=== PATIENT | female | born 1940 | race Caucasian/White ===

== ENCOUNTER → 2023-12-28 09:50 | Outpatient (REF) | payer MEDICARE, OTHER, SELFPAY | LOC: DHSLP 09:50 | PROVIDERS: ATTENDING PHYSICIAN Internal Medicine Critical Care Medicine; FAMILY PHYSICIAN Internal Medicine Cardiovascular Disease | DX: G47.33 Obstructive sleep apnea (adult) (pediatric) (principal) | CPT/HCPCS: 95800 ==

== ENCOUNTER 2024-03-19 07:29 | Day surgery (SDC) | payer MEDICARE, OTHER, SELFPAY ==
--- NOTE | 2024-03-05 09:42 | HPS.HSE ---
Family Physician
-
Family Physician: NIDHI RICHTER, DO
Chief Complaint
-
Persistent atrial fibrillation.
History of Present Illness
The patient is a 83-year-old female presenting today for persistent atrial fibrillation. The patient reports a wide variety of symptoms associated with this diagnosis. Noted symptoms include palpitations, shortness of breath, fatigue, and
lightheadedness. She previously underwent 3 cardioversions secondary to this diagnosis. She is currently rate controlled without the use of pharmacological therapy. She was previously taking Amiodarone; however, this was discontinued due to
tachycardia-bradycardia syndrome. She reports she has been compliant with Eliquis for oral anticoagulation due to a [id number] of 4. She notes that her current symptoms greatly interfere with her activities of daily living and overall impact her
quality of life. She is interested in pursuing with pulmonary vein isolation for further arrhythmia management. Prior to undergoing pulmonary vein isolation, she will need a transesophageal echocardiogram to officially rule out a left atrial
appendage thrombus. She denies any current complaints today such as chest pain and shortness of breath at rest, nausea, vomiting, diarrhea, dizziness, cough, sore throat, or fever.
Medical History
Past Medical History
Past Medical History: Reports Other
Additional Past Medical History:
1. Persistent atrial fibrillation, status post cardioversion x3; oral anticoagulation with Eliquis.
2. Hypertension.
3. Dyslipidemia, statin intolerant.
4. Paroxysmal supraventricular tachycardia.
5. Tachycardia-bradycardia syndrome.
6. Right bundle branch block.
7. Venous varicosities, status post bilateral venous ablation.
7. Pulmonary nodule.
8. Newly diagnosed obstructive sleep apnea, compliant with CPAP.
9. Chronic post-nasal drip.
10. Chronic kidney disease stage 3.
11. Fatty liver disease.
12. Lumbar degenerative disc disease with stenosis.
13. Peripheral neuropathy.
14. Basal and squamous cell carcinoma, status post multiple Mohs.
15. Rosacea.
Past Surgical History: Reports Other
Additional Past Surgical History:
1. Cardioversion.
2. L4-L5 fusion.
3. Hysterectomy.
4. Bilateral tubal ligation.
5. D&C.
6. Venous ablation.
7. Multiple Mohs.
8. Bilateral cataract extraction.
9. Colonoscopy.
Social History
Tobacco: Non-smoker
Alcohol: Occasional
Living: Alone (in a 2 story home. )
Family History
Family History: Not pertinent
Allergies / Home Medications
Allergy/Medication List:
Home medications:
1. Eliquis 5 mg p.o. twice a day.
2. Ascorbic acid 1000 mg p.o. daily.
3. Cholecalciferol 25 mcg p.o. daily.
4. Repatha 140 mg subcutaenous monthly.
5. Lysine 1000 mg p.o. daily.
6. Magnesium 500 mg p.o. daily.
7. Multivitamin 1 tablet p.o. daily.
8. Spironolactone 25 mg p.o. daily.
9. Valsartan 160 mg p.o. daily.
10. Vitamin B complex 1 capsule p.o. daily.
11. Zinc 50 mg p.o. daily.
12. Doxycycline 50 mg p.o. every other day.
Allergies: Diltiazem. Niacin. Rosuvastatin. Simvastatin. Enalapril.
Review of Systems
-
A 12 point ROS was completed and negative except as noted: Yes
Physical Exam
Vital Signs
Blood pressure 158/90. Heart rate 79. Respirations 18. Pulse ox 99% on room air.
Height 5 feet, 1 inch. Weight 69.8 kg. BMI 29.1.
Physical Exam
General: Well Developed, Well Nourished and No Apparent Distress
HEENT: NormoCephalic, Moist mucous membranes, Atraumatic and PERRLA
Respiratory: Clear
Cardiac: Irregular Rhythm
GI: Soft, Non Tender and Non Distended
Musculoskeletal: Normal Gait & Station
Skin: Warm and Dry
Neuro: AO x 3 and Nonfocal/grossly intact
Laboratory Results
-
DIAGNOSTIC STUDIES as of 02/22/2024: White blood cell count 5.5. Hemoglobin 14.0. Platelet count 206,000. PT 16.0. INR 1.22. Sodium 140. Potassium 4.6. BUN 25. Creatinine 1.3. Glucose 89. Calcium 9.8. Magnesium 2.2. AST 30. ALT 17. Albumin 5.0. Type
and screen O positive.
EKG 02/22/2024: Atrial fibrillation. Right bundle branch block. Low voltage QRS. ST and T wave abnormality, consider anterior ischemia.
Chest CT 02/22/2024: Small accessory right middle pulmonary vein. Short segment common channel of the left superior and inferior pulmonary veins. Incomplete contrast filling of the left atrial appendage, less likely thrombus.
Impression/Plan
-
IMPRESSION/PLAN:
1. Persistent atrial fibrillation: The patient is in need of pulmonary vein isolation for further arrhythmia management; however, she will need to undergo a pre-procedural transesophageal echocardiogram first to officially rule out a left atrial
appendage thrombus. Her CAMMY will take place on 03/19/[address] Gallo Sung. The benefits and risks of this procedure have been explained to the patient. The patient understands these risks and wishes to proceed.
[2024-03-19 08:00] VITALS: BMI 29.0
== END 2024-03-19 10:30 | disposition home or self-care (01) ==
LOC: CATH 07:29
PROVIDERS: ATTENDING PHYSICIAN Nuclear Medicine Nuclear Cardiology; FAMILY PHYSICIAN Family Medicine
DX: I48.19 Other persistent atrial fibrillation (principal); I08.1 Rheumatic disorders of both mitral and tricuspid valves; I70.0 Atherosclerosis of aorta; I12.9 Hypertensive chronic kidney disease with stage 1 through stage 4 chronic kidney disease, or unspecified chronic kidney disease; E78.5 Hyperlipidemia, unspecified; I47.20 Ventricular tachycardia, unspecified; I10 Essential (primary) hypertension; I45.10 Unspecified right bundle-branch block; Z79.01 Long term (current) use of anticoagulants; Z79.899 Other long term (current) drug therapy
CPT/HCPCS: 93312; 93320; 93325

== ENCOUNTER 2024-03-22 05:56 | Day surgery (SDC) | payer MEDICARE, OTHER, SELFPAY ==
--- NOTE | 2024-02-22 09:14 | HPS.HSE ---
Family Physician
-
Family Physician: NO INTERVIEW UNKNOWN
Chief Complaint
-
Persistent atrial fibrillation.
History of Present Illness
The patient is a 83-year-old female presenting today for persistent atrial fibrillation. The patient reports a wide variety of symptoms associated with this diagnosis. Noted symptoms include palpitations, shortness of breath, fatigue, and
lightheadedness. She previously underwent 3 cardioversions secondary to this diagnosis. She is currently rate controlled without the use of pharmacological therapy. She was previously taking Amiodarone; however, this was discontinued due to
tachycardia-bradycardia syndrome. She reports she has been compliant with Eliquis for oral anticoagulation due to a [id number] of 4. She notes that her current symptoms greatly interfere with her activities of daily living and overall impact her
quality of life. She is interested in pursuing with pulmonary vein isolation for further arrhythmia management. She denies any current complaints today such as chest pain and shortness of breath at rest, nausea, vomiting, diarrhea, dizziness, cough,
sore throat, or fever.
Medical History
Past Medical History
Past Medical History: Reports Other
Additional Past Medical History:
1. Persistent atrial fibrillation, status post cardioversion x3; oral anticoagulation with Eliquis.
2. Hypertension.
3. Dyslipidemia, statin intolerant.
4. Paroxysmal supraventricular tachycardia.
5. Tachycardia-bradycardia syndrome.
6. Right bundle branch block.
7. Venous varicosities, status post bilateral venous ablation.
7. Pulmonary nodule.
8. Newly diagnosed obstructive sleep apnea, compliant with CPAP.
9. Chronic post-nasal drip.
10. Chronic kidney disease stage 3.
11. Fatty liver disease.
12. Lumbar degenerative disc disease with stenosis.
13. Peripheral neuropathy.
14. Basal and squamous cell carcinoma, status post multiple Mohs.
15. Rosacea.
Past Surgical History: Reports Other
Additional Past Surgical History:
1. Cardioversion.
2. L4-L5 fusion.
3. Hysterectomy.
4. Bilateral tubal ligation.
5. D&C.
6. Venous ablation.
7. Multiple Mohs.
8. Bilateral cataract extraction.
9. Colonoscopy.
Social History
Tobacco: Non-smoker
Alcohol: Occasional
Living: Alone (in a 2 story home. )
Family History
Family History: Not pertinent
Allergies / Home Medications
Allergy/Medication List:
Home medications:
1. Eliquis 5 mg p.o. twice a day.
2. Ascorbic acid 1000 mg p.o. daily.
3. Cholecalciferol 25 mcg p.o. daily.
4. Repatha 140 mg subcutaenous monthly.
5. Lysine 1000 mg p.o. daily.
6. Magnesium 500 mg p.o. daily.
7. Multivitamin 1 tablet p.o. daily.
8. Spironolactone 25 mg p.o. daily.
9. Valsartan 160 mg p.o. daily.
10. Vitamin B complex 1 capsule p.o. daily.
11. Zinc 50 mg p.o. daily.
12. Doxycycline 50 mg p.o. every other day.
Allergies: Diltiazem. Niacin. Rosuvastatin. Simvastatin. Enalapril.
Review of Systems
-
A 12 point ROS was completed and negative except as noted: Yes
Physical Exam
Vital Signs
Blood pressure 158/90. Heart rate 79. Respirations 18. Pulse ox 99% on room air.
Height 5 feet, 1 inch. Weight 69.8 kg. BMI 29.1.
Physical Exam
General: Well Developed, Well Nourished and No Apparent Distress
HEENT: NormoCephalic, Moist mucous membranes, Atraumatic and PERRLA
Respiratory: Clear
Cardiac: Irregular Rhythm
GI: Soft, Non Tender and Non Distended
Musculoskeletal: Normal Gait & Station
Skin: Warm and Dry
Neuro: AO x 3 and Nonfocal/grossly intact
Laboratory Results
-
DIAGNOSTIC STUDIES as of 02/22/2024: White blood cell count 5.5. Hemoglobin 14.0. Platelet count 206,000. PT 16.0. INR 1.22. Sodium 140. Potassium 4.6. BUN 25. Creatinine 1.3. Glucose 89. Calcium 9.8. Magnesium 2.2. AST 30. ALT 17. Albumin 5.0. Type
and screen O positive.
EKG 02/22/2024: Atrial fibrillation. Right bundle branch block. Low voltage QRS. ST and T wave abnormality, consider anterior ischemia.
Chest CT 02/22/2024: Small accessory right middle pulmonary vein. Short segment common channel of the left superior and inferior pulmonary veins. Incomplete contrast filling of the left atrial appendage, less likely thrombus.
Impression/Plan
-
IMPRESSION/PLAN:
1. Persistent atrial fibrillation: The patient is in need of pulmonary vein isolation with Dr. Osmel Cuenca on 03/22/2024. The benefits and risks of the procedure have been explained to the patient. The patient understands these risks and wishes to
proceed. She is aware to continue her Eliquis uninterrupted prior to her procedure. She will take no medications the morning of her ablation. A pre-procedural transesophageal echocardiogram will be performed on 03/19/2024 to officially rule out a
left atrial appendage thrombus.
[2024-02-22 09:19] VITALS: BMI 29.1
[2024-03-22] VITALS (11 sets, daily range): BP systolic 157–197; BP diastolic 94–127; BMI 28.8
[2024-03-22 08:46] LABS: ACT-LR - POC 250 Seconds (116-155)
[2024-03-22 09:04] LABS: ACT-LR - POC 311 Seconds (116-155)
[2024-03-22 09:30] LABS: ACT-LR - POC 337 Seconds (116-155)
[2024-03-22 09:53] LABS: ACT-LR - POC 371 Seconds (116-155)
[2024-03-22 10:01] LABS: ACT-LR - POC 128 Seconds (116-155)
--- NOTE | 2024-03-22 10:47 | ITS.CL.ABL ---
Psychiatric Security Nurse - Ablation
Ablation
Procedure Report:
Primary Lay Out Carpenter: Arvin Roblero MD
Procedure Date: 03/22/2024
Patient History:
Patient is a very pleasant 83-year-old female with a past medical history significant for CKD stage IIIb, hypertension, dyslipidemia, right bundle branch block, pulmonary nodule, tachybradycardia syndrome, and symptomatic persistent atrial
fibrillation.
See H&P for complete details.
Indication:
Symptomatic persistent atrial fibrillation
Arrhythmia Specific History:
Prior Medical Therapies for Rate and Rhythm Control:
X Beta-lucy
[ ] Calcium channel-lucy
X Amiodarone
[ ] Dronederone
[ ] Sotalol
[ ] Flecainide
[ ] Dofetilide
[ ] Options limited by bradycardia
[ ] Options limited by comorbid renal disease
Prior Procedural Therapies for AF/AFL:
X Cardioversion
[ ] Pulmonary Vein Isolation
[ ] Posterior Wall Isolation
[ ] Additional lines (Specify)
[ ] Surgical Dial-MAZE or PVI (Specify)
Procedure Performed:
X AF ablation procedure (61942) -- includes LA/CS pacing, trans-septal, 3D mapping, + ICE
[ ] +IV drug (15264)
[ ] +Other Arrhythmia (03805)
X +Other AF Line/ablation (95660) - posterior wall isolation (floor, roof, wall)
Risks and expected recovery has been explained in detail. Alternative options have been explored, and in a shared-decision making fashion we have decided that this was the most appropriate procedure.
Method
NPO status confirmed. Grounding pad applied. Defibrillator pads applied. Continuous surface ECG, pulse oximetry, and blood pressure were monitored. Procedure was performed under general anesthesia, with anesthesia services.
Both groins were clipped, prepped with Chloraprep, and draped in sterile fashion. Time out was called. Local anesthesia administered with bupivacaine. The right femoral vein was accessed for catheter placement, using ultrasound guidance (images
saved to record), micro-puncture needle/wire, and modified seldinger technique. 3 sheaths were placed. The following catheters were used:
[ ] Tacticath SE (D/F Curve) ablation catheter
X Viewflex 9Fr ICE catheter
X Inquiry decapolar 6Fr diagnostic catheter
[ ] CRD Hex 6Fr
[ ] Arctic Front Advance Cryoballoon ([ ]28mm[ ]23mm)
[ ] Achieve Advance mapping catheter ([ ]15mm[ ]20mm)
X FlexCath Contour 10 Fr with PulseSelect PFA Catheter
X Advisor HD Grid Mapping Catheter, SE
[ ] AcusKylin Network AcuNav 8 Fr ICE catheter
[ ]Other: [ ]
Intracardiac ultrasound (ICE) was carefully advanced into the right atrium to guide sheath placement over a J-wire, catheter placement, guide trans-septal puncture, identify potential complications, identify anatomic structures and ensure proper
contact between ablation catheter and tissue. A trace pericardial effusion was noted basal LV at the start of procedure which remained unchanged during procedure and the case completion.
Heparin was given prior to trans-septal puncture. Heparin was given to achieve and maintain a target ACT of 300-400 seconds throughout the procedure.
Trans-septal access was performed under ICE guidance. The trans-septal puncture was performed with a SafeSept wire through a Brockenbrough needle assembly through the steerable sheath. The wire was visualized as it entered the LSPV and system
advanced under ICE guidance and fluoroscopy into the LA. The Brockenbrough needle assembly, SafeSept wire and sheath dilator were removed under negative pressure. LA pressure was measured and recorded.
ICE and 3D mapping was performed to identify relevant cardiac structures. A careful 3D map was created to assess for regions of low-voltage and abnormal electrogram signals using HD grid mapping catheter and PulseSelect catheter. Additional mapping
was performed as outlined below.
Prior to ablation, glycopyrrolate was provided. PulseSelect catheter was advanced over J-wire to the ostium of each vein. Pulmonary vein isolation was performed with ostial and antral lesions in a circumferential manner. Contact was visualized via
EAM, ICE, fluoroscopy, and EGM signals. Posterior wall isolation was performed by anchoring the J-wire within the pulmonary vein and placing the PulseSelect catheter in contact with the posterior wall as visualized by aforementioned methods.
Following completion of ablation lesions, sinus rhythm was restored with a 200J synchronized DCCV and a post-ablation voltage/activation map was performed in sinus rhythm. Entrance and exit block were confirmed for each vein and the posterior wall.
Catheter and sheath were removed from the left atrium and post-ablation intracardiac echo evaluation was consistent with pre-ablation with no changes and no pericardial effusion and there is no left atrial thrombus or left ventricle thrombus seen.
Electrophysiology study was performed however due to frequent atrial ectopy, full study not completed. Hemostasis was obtained with figure of 8 stitch for each groin and with manual pressure. Protamine was used for reversal.
Estimated Blood Loss
10 mL
Complications
None
Fluoroscopy: 3.5 minutes; 16.18 mGy; DAP 0.13
Baseline Intervals:
Rhythm: AF
QRS: 154 ms
Post-Procedure Intervals:
AK: 191 ms
QRS: 167 ms
QT: 509 ms
QTc: 555 ms
A-A: 842 ms
R-R: 842 ms
Recommendations
- Bedrest with straight-leg precautions as ordered
- Anticipate same day discharge if patient meeting clinical metrics
- Resume home medications as indicated
- Ok to resume anticoagulation tonight if patient and groin sites stable
- PPI daily for 30 days
- Plan for follow-up in office as scheduled
- Will start low dose beta-lucy to reduce ectopy; if early recurrence of AF during blanking period, low threshold for AAD
Osmle Cuenca,
Clinical Cardiac Zoology Teacher
cc: Dr Kurtis Montejo, Dr Arvin Roblero
[2024-03-22] MEDS: LOPRESSOR 12.5 MG PO (10:59)
[2024-03-22] MEDS: ANESTHETIC LOZENGE 1 LOZENGE PO (11:03)
--- NOTE | 2024-03-22 11:22 | PTCARENOTE ---
BP trending reviewed with Buffy HERNANDEZ, currently 194/102, orders will be placed for her valsartan and spironolactone
[2024-03-22] MEDS: ALDACTONE 25 MG PO (11:32)
[2024-03-22] MEDS: DIOVAN 160 MG PO (11:32)
--- NOTE | 2024-03-22 15:03 | W.PN.UPDATE ---
Update Note
Progress Note Update
83 yo WF s/p PVI (same day). She denies cp, sob, aj diet, voiding, amb w/o dizziness, EKG SR RBBB, R fem site c/d/i no HT, soft. She will resume Eliquis tonight. We will add low dose BB metoprolol 12.5mg daily and PPI for 30 days. Activity
restrictions reviewed. She will f/u Dr. Roblero in 2 mo. She is for d/c home after 315pm.
== END 2024-03-22 15:05 | disposition home or self-care (01) ==
LOC: CATH 05:56
PROVIDERS: ATTENDING PHYSICIAN Internal Medicine Cardiovascular Disease; FAMILY PHYSICIAN Family Medicine; OTHER PHYSICIAN Internal Medicine Cardiovascular Disease
DX: I48.19 Other persistent atrial fibrillation (principal); E78.5 Hyperlipidemia, unspecified; I12.9 Hypertensive chronic kidney disease with stage 1 through stage 4 chronic kidney disease, or unspecified chronic kidney disease; N18.32 Chronic kidney disease, stage 3b; I49.5 Sick sinus syndrome; G47.33 Obstructive sleep apnea (adult) (pediatric); I45.10 Unspecified right bundle-branch block; K76.0 Fatty (change of) liver, not elsewhere classified; Z79.899 Other long term (current) drug therapy; Z79.01 Long term (current) use of anticoagulants; Z90.710 Acquired absence of both cervix and uterus; M51.369 Other intervertebral disc degeneration, lumbar region without mention of lumbar back pain or lower extremity pain; M48.00 Spinal stenosis, site unspecified; G62.9 Polyneuropathy, unspecified; L71.9 Rosacea, unspecified; Z85.828 Personal history of other malignant neoplasm of skin; R09.82 Postnasal drip
CPT/HCPCS: C1732; C1894; C1733; C1769; 85347; 86900; 86901; 93005; 93656; 93657; C1766

== ENCOUNTER → 2024-09-02 11:58 | Outpatient (REF) | payer MEDICARE, OTHER, SELFPAY | LOC: DHSLP 11:58 | PROVIDERS: ATTENDING PHYSICIAN Internal Medicine Critical Care Medicine; FAMILY PHYSICIAN Family Medicine | DX: G47.33 Obstructive sleep apnea (adult) (pediatric) (principal); G47.61 Periodic limb movement disorder | CPT/HCPCS: 95811 ==

== ENCOUNTER → 2025-01-17 10:11 | Outpatient (REF) | payer MEDICARE, OTHER, SELFPAY ==
[2025-01-17 11:26] LABS: Hematocrit 43.5 % (37.0-47.0); Hemoglobin 14.4 g/dL (12.0-16.0); Mean Corp Hgb Conc. 33.1 g/dL (33.0-37.0); Mean Corpuscular Volume 101.4 fL (81.0-99.0); Nucleated Red Blood Cells % 0 %; Platelet Count 215 10^3/uL (130-400); Red Cell Dist. Width 13.3 % (11.5-14.5)
[2025-01-17 11:34] LABS: INR 1.29; PT 16.2 Sec (11.4-14.6)
[2025-01-17 11:49] LABS: ALT (SGPT) 21 U/L (0-35); AST (SGOT) 30 U/L (14-36); Albumin 5.0 g/dl (3.5-5.0); Alkaline Phosphatase 76 U/L (38-126); Blood Urea Nitrogen 30 mg/dl (7-17); Calcium 10.0 mg/dl (8.4-10.2); Carbon Dioxide 28 mmol/L (22-30); Chloride 103 mmol/L (98-107); Glucose 63 mg/dl (70-99); Magnesium 2.2 mg/dl (1.6-2.3); Potassium 5.2 mmol/L (3.5-5.1); Sodium 139 mmol/L (135-145); Total Protein 7.7 g/dl (6.3-8.2); eGFR 37.10
== END ==
LOC: SDSPAT 10:11
PROVIDERS: ATTENDING PHYSICIAN Internal Medicine Cardiovascular Disease; FAMILY PHYSICIAN Family Medicine
DX: I48.91 Unspecified atrial fibrillation (principal)
CPT/HCPCS: 36415; 80053; 83735; 85025; 85610; 86850; 86900; 86901; 93005

== ENCOUNTER 2025-02-04 08:41 | Day surgery (SDC) | payer MEDICARE, OTHER, SELFPAY ==
[2025-02-04 09:30] VITALS: BMI 27.8
== END 2025-02-04 11:00 | disposition home or self-care (01) ==
LOC: CATH 08:41
PROVIDERS: ATTENDING PHYSICIAN Internal Medicine Cardiovascular Disease; FAMILY PHYSICIAN Family Medicine; OTHER PHYSICIAN Internal Medicine Cardiovascular Disease
DX: I48.19 Other persistent atrial fibrillation (principal); I08.3 Combined rheumatic disorders of mitral, aortic and tricuspid valves; E78.5 Hyperlipidemia, unspecified; G47.33 Obstructive sleep apnea (adult) (pediatric); I12.9 Hypertensive chronic kidney disease with stage 1 through stage 4 chronic kidney disease, or unspecified chronic kidney disease; N18.32 Chronic kidney disease, stage 3b; I08.8 Other rheumatic multiple valve diseases; I45.10 Unspecified right bundle-branch block; I87.2 Venous insufficiency (chronic) (peripheral); Z79.899 Other long term (current) drug therapy; Z79.01 Long term (current) use of anticoagulants; Z90.710 Acquired absence of both cervix and uterus; Z90.49 Acquired absence of other specified parts of digestive tract
CPT/HCPCS: 93312; 93320; 93325